=== PATIENT | male | born 1955 | race Caucasian/White ===

== ENCOUNTER 2016-11-12 04:21 | Emergency (ER) | payer OTHER ==
[~2016-11-12 04:21] MED LIST: ASPI81TA82 PO
[2016-11-12 04:24] VITALS: BP 183/106; PULSE 63; RESP 18; TEMP 97.6; O2SAT 97
[2016-11-12] MEDS ORDERED: ASPI-110 PO (04:46)
[2016-11-12] MEDS ORDERED: METO50TA PO (04:46)
[2016-11-12] MEDS ORDERED: VITA400T2 PO (04:46)
[2016-11-12] MEDS ORDERED: LISI10TA3 PO (04:46)
[2016-11-12] MEDS ORDERED: OMEP20TA PO (04:46)
[2016-11-12] MEDS ORDERED: SODIUM CHLOR 0.9% 1000 ML INJ 1,000 ML IV SCH (05:06)
[2016-11-12] MEDS ORDERED: SODIUM CHLORIDE 0.9% FLUSH 5 ML FLUSH IVF PRN (05:15)
[2016-11-12] MEDS ORDERED: LIDOCAINE VISCOUS 2% SOLN 15 ML UDC PO ONE (05:15)
[2016-11-12] MEDS ORDERED: ALUMINUM/MAGNESIUM/SIMETH 30 ML CUP PO ONE (05:15)
[2016-11-12] MEDS ORDERED: ONDANSETRON HCL 4 MG/2 ML VIAL IVP ONE (05:15)
[2016-11-12 05:31] LABS: AUTOMATED NEUTROPHIL # 3.4 TH/MM3 (1.8-7.7); BASOPHIL % 0.6 % (0.0-2.0); EOSINOPHIL # 0.1 TH/MM3 (0-0.4); EOSINOPHIL % 2.1 % (0.0-4.0); HEMATOCRIT 44.6 % (39.0-51.0); HEMO FLAGS DIFF FINAL; LYMPH % 36.8 % (9.0-44.0); LYMPHOCYTE # 2.4 TH/MM3 (1.0-4.8); MEAN CELL VOLUME 92.3 FL (80.0-100.0); MEAN CORPUSCULAR HEMOGLOBIN 32.1 PG (27.0-34.0); MEAN CORPUSCULAR HGB CONC 34.8 % (32.0-36.0); NEUT % 52.5 % (16.0-70.0); PLATELET COUNT 206 TH/MM3 (150-450); RED BLOOD COUNT 4.83 MIL/MM3 (4.50-5.90); RED CELL DISTRIBUTION WIDTH 13.2 % (11.6-17.2); WHITE BLOOD COUNT 6.5 TH/MM3 (4.0-11.0)
[2016-11-12] MEDS ORDERED: ZOFR4TAB3 SL (05:50)
--- NOTE | 2016-11-12 05:50 | PD ---
HPI Chief Complaint: Abdominal Pain Time Seen by Provider: 05:02 Travel History International Travel<30 days: No Contact w/Intl Traveler<30days: No Traveled to known affect area: No History of Present Illness HPI The patient is 60 years old. He developed epigastric abdominal pain which radiates to the back about 10 hours prior to ER arrival. The onset was gradual. He's had nausea and 2 episodes of vomiting since the onset of pain. He's had diarrhea as well. Last oral intake was a TV dinner and apple crisp. He had a similar event prior however that improved with oral hydration. He denies fever. PFSH Past Medical History Heart Rhythm Problems: Yes (SVT) Cardiovascular Problems: Yes (SVT) Past Surgical History Abdominal Surgery: Yes (HIATAL HERNIA REPAIR) Appendectomy: Yes Social History Alcohol Use: Yes Tobacco Use: No (quit 2 years ago) Substance Use: No Allergies-Medications (Allergen,Severity, Reaction): Coded Allergies: No Known Allergies (Unverified , 11/12/16) Reported Meds & Prescriptions Reported Meds & Active Scripts Active Zofran Odt (Ondansetron Odt) 4 Mg Tab 4 Mg SL Q8HR PRN Reported Vitamin D (Cholecalciferol) 400 Unit Tab 400 Mg PO BID Lisinopril 10 Mg Tab 10 Mg PO DAILY Metoprolol Tartrate 50 Mg Tab 50 Mg PO BID Omeprazole 20 Mg Tab 20 Mg PO DAILY Aspirin 81 (Aspirin) 81 Mg Tabdr 81 Mg PO DAILY Review of Systems Except as stated in HPI: all other systems reviewed are Neg General / Constitutional: No: Fever, Chills Gastrointestinal: Positive: Nausea, Vomiting, Diarrhea, Abdominal Pain Physical Exam Narrative GENERAL: 60-year-old male well-nourished well-developed no acute distress SKIN: Warm and dry. HEAD: Atraumatic. Normocephalic. EYES: Pupils equal and round. No scleral icterus. No injection or drainage. ENT: No nasal bleeding or discharge. Mucous membranes pink and moist. NECK: Trachea midline. No JVD. CARDIOVASCULAR: Regular rate and rhythm. No murmur appreciated. RESPIRATORY: No accessory muscle use. Clear to auscultation. Breath sounds equal bilaterally. GASTROINTESTINAL: Soft. Negative Temple's sign. No TTP at McBurney's point. MUSCULOSKELETAL: No obvious deformities. No clubbing. No cyanosis. No edema. NEUROLOGICAL: Awake and alert. No obvious cranial nerve deficits. Motor grossly within normal limits. Normal speech. PSYCHIATRIC: Appropriate mood and affect; insight and judgment normal. Data Data Last Documented VS Vital Signs Date Time Temp Pulse Resp B/P Pulse Ox O2 Delivery O2 Flow Rate FiO2 11/12/16 06:25 97 Room Air 11/12/16 04:24 97.6 63 18 183/106 VS reviewed Orders Complete Blood Count With Diff (11/12/16 05:06) Comprehensive Metabolic Panel (11/12/16 05:06) Lipase (11/12/16 05:06) Iv Access Insert/Monitor (11/12/16 05:06) Ecg Monitoring (11/12/16 05:06) Oximetry (11/12/16 05:06) Ondansetron Inj (Zofran Inj) (11/12/16 05:15) Sodium Chlor 0.9% 1000 Ml Inj (Ns 1000 M (11/12/16 05:06) Sodium Chloride 0.9% Flush (Ns Flush) (11/12/16 05:15) Ct Abd/Pel W Iv Contrast(Rout) (11/12/16 05:06) Al-Mag Hy-Si 40-40-4 Mg/Ml Liq (Mag-Al P (11/12/16 05:15) Lidocaine 2% Viscous (Xylocaine 2% Visco (11/12/16 05:15) Iohexol 350 Inj (Omnipaque 350 Inj) (11/12/16 06:14) Labs Laboratory Tests Test 11/12/16 04:10 White Blood Count 6.5 TH/MM3 Red Blood Count 4.83 MIL/MM3 Hemoglobin 15.5 GM/DL Hematocrit 44.6 % Mean Corpuscular Volume 92.3 FL Mean Corpuscular Hemoglobin 32.1 PG Mean Corpuscular Hemoglobin 34.8 % Concent Red Cell Distribution Width 13.2 % Platelet Count 206 TH/MM3 Mean Platelet Volume 7.6 FL Neutrophils (%) (Auto) 52.5 % Lymphocytes (%) (Auto) 36.8 % Monocytes (%) (Auto) 8.0 % Eosinophils (%) (Auto) 2.1 % Basophils (%) (Auto) 0.6 % Neutrophils # (Auto) 3.4 TH/MM3 Lymphocytes # (Auto) 2.4 TH/MM3 Monocytes # (Auto) 0.5 TH/MM3 Eosinophils # (Auto) 0.1 TH/MM3 Basophils # (Auto) 0.0 TH/MM3 CBC Comment DIFF FINAL Differential Comment Sodium Level 141 MEQ/L Potassium Level 4.1 MEQ/L Chloride Level 105 MEQ/L Carbon Dioxide Level 27.2 MEQ/L Anion Gap 9 MEQ/L Blood Urea Nitrogen 12 MG/DL Creatinine 1.32 MG/DL Estimat Glomerular Filtration 56 ML/MIN Rate Random Glucose 94 MG/DL Calcium Level 8.9 MG/DL Total Bilirubin 0.8 MG/DL Aspartate Amino Transf 14 U/L (AST/SGOT) Alanine Aminotransferase 21 U/L (ALT/SGPT) Alkaline Phosphatase 86 U/L Total Protein 6.9 GM/DL Albumin 3.7 GM/DL Lipase 249 U/L [facility] Medical Decision Making Medical Screen Exam Complete: Yes Emergency Medical Condition: Yes Medical Record Reviewed: Yes Differential Diagnosis Constipation, Gastritis, Acute Cholecystitis, Biliary Colic, Pancreatitis, DRISCOLL , Hepatitis, Bowel Obstruction, Cystitis, Mesenteric Ischemia, AAA, Appendicitis , Renal Stone/Hydronephrosis, GERD, perforated viscous Narrative Course CBC & BMP Diagram 11/12/16 04:10 LFTs normal Lipase 249 CT ab/pel: 6mm stone neck of GB without cholecystitis. 4cm hiatal hernia. small left inguinal hernia containing fat. Pain controlled without analgesia. Zofran prescribed. Follow up with general surgery for elective cholecystectomy as needed. Diagnosis Primary Impression: Cholelithiasis Qualified Code: K80.20 - Calculus of gallbladder without cholecystitis without obstruction Additional Impression: Nausea & vomiting Qualified Code: R11.2 - Nausea and vomiting, intractability of vomiting not specified, unspecified vomiting type Referrals: Vijay Barajas MD 1 week Additional Instructions: You have a choice when it comes to health care, and we are glad that you chose [facility]. Hopefully, we have met your expectations on today's visit. You are welcome to return to [facility] at any time, as we are committed to meeting the health care needs of our community. Med/Other Pt SpecificInfo: Prescription(s) given Scripts Ondansetron Odt (Zofran Odt)4 Mg Tab4 Mg SL Q8HR PRN (Nausea/Vomiting) #10 TAB Ref 0 Prov:Linwood Cortes MD 11/12/16 Disposition: 01 DISCHARGE HOME Condition: Stable Linwood Cortes MD Nov 12, 2016 05:50
[2016-11-12 05:53] LABS: ALT (GPT) 21 U/L (12-78); ANION GAP 9 MEQ/L (5-15); AST (GOT) 14 U/L (15-37); BICARBONATE 27.2 MEQ/L (21.0-32.0); BLOOD UREA NITROGEN 12 MG/DL (7-18); CHLORIDE 105 MEQ/L (98-107); GLOMERULAR FILTRATION RATE 56 ML/MIN (>89); POTASSIUM 4.1 MEQ/L (3.5-5.1); SODIUM (NA) 141 MEQ/L (136-145)
[2016-11-12 05:55] LABS: ALKALINE PHOSPHATASE 86 U/L (45-117); TOTAL BILIRUBIN ADULT 0.8 MG/DL (0.2-1.0)
[2016-11-12] MEDS ORDERED: IOHEXOL 350 MG/ML 10 ML VIAL (for RAD DIAG) IV ONE (06:14)
[2016-11-12 06:25] VITALS: O2SAT 97
--- NOTE | 2016-11-12 06:42 | RADRPT ---
EXAM DATE/TIME: 11/12/2016 06:13 [facility] COMPARISON: No previous studies available for comparison. INDICATIONS : Epigastric pain with nausea and vomiting. IV CONTRAST: 95 cc Omnipaque 350 (iohexol) IV ORAL CONTRAST: No oral contrast ingested. RADIATION DOSE: 9.69 CTDIvol (mGy) MEDICAL HISTORY : Hernia, hiatal. SURGICAL HISTORY : Appendectomy. Hiatal hernia repair. ENCOUNTER: Initial ACUITY: 1 day PAIN SCALE: 8/10 LOCATION: upper quadrant TECHNIQUE: Volumetric scanning of the abdomen and pelvis was performed. Using automated exposure control and ad justment of the mA and/or kV according to patient size, radiation dose was kept as low as reasonably achievable to obtain optimal diagnostic quality images. FINDINGS: LOWER LUNGS: The visualized lower lungs are clear. 4 cm hiatus hernia. LIVER: Homogeneous density without lesion. There is no dilation of the biliary tree. There is a 6 mm oval density near the neck of the gallbladder probably representing a stone. SPLEEN: Normal size without lesion. PANCREAS: Within normal limits. KIDNEYS: Normal in size and shape. There is no mass, stone or hydronephrosis. ADRENAL GLANDS: Within normal limits. VASCULAR: There is no aortic aneurysm. BOWEL/MESENTERY: No dilated loops of small or large bowel. There is colonic interposition anterior to the liver. No evidence of free fluid or free intraperitoneal gas. ABDOMINAL WALL: Within normal limits. RETROPERITONEUM: There is no lymphadenopathy. BLADDER: No wall thickening or mass. REPRODUCTIVE: Within normal limits. INGUINAL: There is a small fat containing left inguinal hernia. MUSCULOSKELETAL: Within normal limits for patient age. CONCLUSION: 1. 6 mm stone near the neck of the gallbladder. 2. 4 cm hiatus hernia. 3. Small left inguinal hernia containing fat. Surinder Fernández MD on November 12, 2016 at 6:37 Board Certified Radiologist. This report was verified electronically.
[2016-11-12] MEDS ORDERED: PERC7.5T13 PO (07:14)
[2017-02-08] MEDS ORDERED: VITATAB56 PO (10:35)
== END 2016-11-12 07:39 | disposition home or self-care (01) ==
LOC: NEPC 04:21
DX: K80.20 Calculus of gallbladder without cholecystitis without obstruction (principal)
CPT/HCPCS: 74177; 80053; 83690; 85025; 96361; 96374; 99284; J2405; J7030; Q9967

== ENCOUNTER → 2017-02-09 | Day surgery (SDC) | payer OTHER ==
[~2017-02-09] VITALS: Ht 177.8 cm; Wt 86.5 kg
[~2017-02-09] MED LIST changes: +ACETAMINOPHEN 1000 MG/100 ML VIAL IV SCH; +ASPI-110 PO; -ASPI81TA82 PO; +BUPIVACAINE/EPINEPHRINE 0.25% PF 10 ML VIAL ONE; +CHLORHEXIDINE GLUCONATE 2 % 1 PACK (2 CLOTHS) TOPICAL PRN; +DEXAMETHASONE SOD PHOS 4 MG/ML VIAL ONE; +DO NOT ADM ANY ANTICOAGULANT DRUGS PRN; +FAMOTIDINE 20 MG/2 ML VIAL ONE; +INSULIN HUMAN REGULAR 1,000 UNITS/10 ML VIAL SQ PRN; +LACTATED RINGER'S 1000 ML INJ 1,000 ML IV ONE; +LACTATED RINGER'S 1000 ML IV PRN; +LISI10TA3 PO; +METO50TA PO; +METOPROLOL TARTRATE 25 MG TAB PO PRN; +MIDAZOLAM HCL 2 MG/2 ML VIAL ONE; +MORPHINE SULFATE 4 MG/ML INJ IV PRN; +MORPHINE SULFATE 4 MG/ML INJ ONE; +NEOSTIGMINE 3 MG/3 ML SYR IV ONE; +OMEP20TA PO; +ONDANSETRON HCL 4 MG/2 ML VIAL IV PRN; +ONDANSETRON HCL 4 MG/2 ML VIAL IV PUSH ONE; +PERC7.5T13 PO; +PHENYLEPH/NS 1000 MCG/10 ML SYR IV ONE; +POVIDONE IODINE 5% (ANTISEPSIS KIT) 4 APPLICATIONS EACH NARE PRN; +PROPOFOL 200 MG/20 ML AMP IV ONE; +SODIUM CHLORID 0.9% 500 ML IV PRN; +VITATAB56 PO; +ceFAZolin 2 GM PREMIX 50 ML IV SCH; +fentaNYL CITRATE 250 MCG/5 ML AMP ONE; +metroNIDAZOLE 500 MG INJ 100 ML IV SCH; +oxyCODONE/ACETAMINOPHEN 5 MG/325 MG TAB PO PRN
[2017-02-09 06:26] VITALS: BP 136/91; PULSE 56; RESP 18; TEMP 98.1; O2SAT 96
[2017-02-09 07:15] LABS: ANION GAP 10 MEQ/L (5-15); AST (GOT) 20 U/L (15-37); BICARBONATE 24.5 MEQ/L (21.0-32.0); BLOOD UREA NITROGEN 16 MG/DL (7-18); CHLORIDE 106 MEQ/L (98-107); GLOMERULAR FILTRATION RATE 50 ML/MIN (>89); POTASSIUM 3.9 MEQ/L (3.5-5.1); SODIUM (NA) 140 MEQ/L (136-145)
[2017-02-09 07:17] LABS: ALT (GPT) 25 U/L (12-78)
[2017-02-09 07:18] LABS: ALKALINE PHOSPHATASE 100 U/L (45-117); TOTAL BILIRUBIN ADULT 0.6 MG/DL (0.2-1.0)
--- NOTE | 2017-02-09 09:45 | PD.OP ---
cc: Alvarado Munguia MD; Shiloh Vogt MD Operative Report Date of Surgery: Feb 09, 2017 Preoperative Diagnosis: (1) Cholelithiasis Postoperative Diagnosis: (1) Cholelithiasis Procedure: Laparoscopic cholecystectomy Primary umbilical hernia repair Anesthesia: [facility] Surgeon: Alvarado Munguia Early Childhood Lead Teacher(s): Luis VIZCAINO Operation and Findings: Complications: None apparent EBL:10cc Operative findings: The gallbladder was thick-walled and had chronic scarring. There was a 1 cm umbilical fascial defect with the fairly large amount of preperitoneal fat incarcerated. Procedure in detail: The patient was taken to the operating room and placed in the supine position. General endotracheal anesthesia was induced. The abdomen was prepped and draped in usual sterile fashion and a surgical timeout was performed to verify correct patient procedure and site. Appropriate perioperative antibiotics were administered. Local anesthetic was injected in the skin and subcutaneous tissue in the superior umbilicus and a superior umbilical curvilinear incision was made. Dissection was carried out through subcutaneous continues tissue with the Metzenbaum scissors and an umbilical hernia incarcerated with preperitoneal fat was encountered and the surrounding tissue freed. The hernia was dissected free from the umbilical skin as well. There is quite a bit of preperitoneal fat therefore I amputated it with the electrocautery. I then placed a 5 mm port through a 1 cm fascial defect with direct laparoscopic visualization. The abdomen was then insufflated to 15 mmHg with CO2 gas which the patient tolerated well. Next a 12 mm port was placed in the epigastrium and two 5 mm ports in the right upper quadrant and right lateral abdomen. The patient was placed in reverse Trendelenburg position and turned slightly to the left. Attention was turned to the right upper quadrant and the dome of the gallbladder was grasped and retracted cephalad. The infundibulum was retracted laterally to expose Calot's triangle. The gallbladder had evidence of chronic thickening and scarring. Blunt dissection and judicious use of electrocautery was used to expose the cystic duct and the cystic artery directly entering the gallbladder. The gallbladder was inadvertently entered and there was some spillage of bile. The suction research management associate was used to suction any bile spillage and also to help with dissection. Finally the cystic duct and cystic artery were clearly seen entering the gallbladder. Two clips were placed proximally on each of these structures and one distally and they were transected. The gallbladder was then removed from the liver bed using electrocautery. Hemostasis was achieved. There was a posterior arterial branch bleeding and I placed 1 clip on this branch. The gallbladder was then removed from the abdomen using an Endo Catch bag. The clips were in place on the cystic duct and cystic artery stumps with no bleeding or bile leakage. At this point, the abdomen was allowed to desufflate and trochars were removed. I then turned my attention to closure of the umbilical fascial defect. I cleared the surrounding fatty tissue to delineate the fascial edge. The defect was then closed with 3 simple interrupted 0 Prolene sutures. The umbilical skin was tacked down to underlying tissue with 2 3-0 Vicryl sutures. Next, The fascia at the 12 mm port site was closed with 0 Vicryl suture. Skin was closed with subcuticular 4-0 Monocryl as well as Dermabond. The patient tolerated the procedure well and was extubated and taken to PACU in stable condition. All sponge and instrument counts were correct. Alvarado Munguia MD Feb 09, 2017 09:45
[2017-02-09 11:15] VITALS: BP 136/87; PULSE 58; RESP 18; TEMP 97.8; O2SAT 95
== END | disposition home or self-care (01) ==
LOC: HSDC 05:47
PROVIDERS: ATTEND Surgery
DX: K80.20 Calculus of gallbladder without cholecystitis without obstruction (principal); K42.9 Umbilical hernia without obstruction or gangrene
CPT/HCPCS: 00790; 47562; 49653; 80053; 88304; J0131; J0690; J1100; J2250; J2270; J2370; J2405; J2710; J3010; J7120

== ENCOUNTER 2018-02-26 13:51 | Observation (INO) | payer OTHER ==
[~2018-02-26] VITALS: Ht 177.8 cm; Wt 88.5 kg
[~2018-02-26 13:51] MED LIST changes: -ACETAMINOPHEN 1000 MG/100 ML VIAL IV SCH; -ASPI-110 PO; +ASPI1TAB57 PO; -BUPIVACAINE/EPINEPHRINE 0.25% PF 10 ML VIAL ONE; -CHLORHEXIDINE GLUCONATE 2 % 1 PACK (2 CLOTHS) TOPICAL PRN; -DEXAMETHASONE SOD PHOS 4 MG/ML VIAL ONE; -DO NOT ADM ANY ANTICOAGULANT DRUGS PRN; -FAMOTIDINE 20 MG/2 ML VIAL ONE; -INSULIN HUMAN REGULAR 1,000 UNITS/10 ML VIAL SQ PRN; -LACTATED RINGER'S 1000 ML INJ 1,000 ML IV ONE; -LACTATED RINGER'S 1000 ML IV PRN; -METOPROLOL TARTRATE 25 MG TAB PO PRN; -MIDAZOLAM HCL 2 MG/2 ML VIAL ONE; -MORPHINE SULFATE 4 MG/ML INJ IV PRN; -MORPHINE SULFATE 4 MG/ML INJ ONE; -NEOSTIGMINE 3 MG/3 ML SYR IV ONE; -OMEP20TA PO; +OMEP20TA93 PO; -ONDANSETRON HCL 4 MG/2 ML VIAL IV PRN; -ONDANSETRON HCL 4 MG/2 ML VIAL IV PUSH ONE; -PHENYLEPH/NS 1000 MCG/10 ML SYR IV ONE; -POVIDONE IODINE 5% (ANTISEPSIS KIT) 4 APPLICATIONS EACH NARE PRN; -PROPOFOL 200 MG/20 ML AMP IV ONE; -SODIUM CHLORID 0.9% 500 ML IV PRN; -ceFAZolin 2 GM PREMIX 50 ML IV SCH; -fentaNYL CITRATE 250 MCG/5 ML AMP ONE; -metroNIDAZOLE 500 MG INJ 100 ML IV SCH; -oxyCODONE/ACETAMINOPHEN 5 MG/325 MG TAB PO PRN
[2018-02-26 13:55] VITALS: BP 151/93; PULSE 76; RESP 16; TEMP 98.2; O2SAT 97
[2018-02-26] MEDS ORDERED: SODIUM CHLORIDE 0.9% FLUSH 10 ML FLUSH IVF PRN (14:30)
[2018-02-26 14:40] VITALS: RESP 18; O2SAT 97
[2018-02-26] MEDS ORDERED: ASPIRIN 81 MG CHEW TAB PO ONE (14:45)
[2018-02-26 14:55] LABS: AUTOMATED NEUTROPHIL # 2.7 TH/MM3 (1.8-7.7); BASOPHIL % 0.5 % (0.0-2.0); EOSINOPHIL # 0.1 TH/MM3 (0-0.4); EOSINOPHIL % 2.9 % (0.0-4.0); HEMATOCRIT 45.1 % (39.0-51.0); HEMOGLOBIN 15.8 GM/DL (13.0-17.0); LYMPH % 32.4 % (9.0-44.0); LYMPHOCYTE # 1.6 TH/MM3 (1.0-4.8); MEAN CELL VOLUME 92.6 FL (80.0-100.0); MEAN CORPUSCULAR HEMOGLOBIN 32.4 PG (27.0-34.0); MEAN CORPUSCULAR HGB CONC 34.9 % (32.0-36.0); MEAN PLATELET VOLUME 7.2 FL (7.0-11.0); MONOCYTE # 0.4 TH/MM3 (0-0.9); NEUT % 56.2 % (16.0-70.0); PLATELET COUNT 234 TH/MM3 (150-450); RED BLOOD COUNT 4.87 MIL/MM3 (4.50-5.90); RED CELL DISTRIBUTION WIDTH 13.8 % (11.6-17.2); WHITE BLOOD COUNT 4.9 TH/MM3 (4.0-11.0)
--- NOTE | 2018-02-26 14:58 | PD ---
HPI Chief Complaint: Chest Pain Time Seen by Provider: 14:28 Travel History International Travel<30 days: No Contact w/Intl Traveler<30days: No Traveled to known affect area: No History of Present Illness HPI 62 y/o male presents with chest pain that has been present for the past week. Quality of pain is pressure. Severity is moderate. It is intermittent in nature. He denies any currently. He states he has had a stress test multiple years ago that was okay. He states he had a baby aspirin today. He states when the pain will come off this morning out of rest and got more frequent he elected to come here. He denies specific modifying factors. He denies any other concurrent complaints. PFSH Past Medical History Heart Rhythm Problems: Yes (SVT) Cancer: Yes (MELANOMA ON CHEST) Cardiovascular Problems: Yes (SVT) Diabetes: No Endocrine: No Gastrointestinal Disorders: Yes (GERD) Genitourinary: No Hepatitis: No Hiatal Hernia: Yes Hypertension: Yes Immune Disorder: No Musculoskeletal: No Neurologic: No Psychiatric: No Reproductive: No Respiratory: No Thyroid Disease: No Past Surgical History Abdominal Surgery: Yes (APPENDECTOMY, INGUINAL HERNIA REPAIR) AICD: No Appendectomy: Yes Cardiac Surgery: No Cholecystectomy: Yes Ear Surgery: No Endocrine Surgery: No Eye Surgery: No Genitourinary Surgery: No Joint Replacement: No Pacemaker: No Thoracic Surgery: No Other Surgery: Yes Social History Alcohol Use: Yes Tobacco Use: No (quit 2 years ago) Substance Use: No Allergies-Medications (Allergen,Severity, Reaction): Coded Allergies: No Known Allergies (Unverified Adverse Reaction, Unknown, 02/26/18) Reported Meds & Prescriptions Reported Meds & Active Scripts Active Reported Vitamin D-400 (Cholecalciferol) 400 Unit Tab 400 Units PO DAILY Lisinopril 10 Mg Tab 10 Mg PO DAILY Metoprolol Tartrate 50 Mg Tab 50 Mg PO BID Omeprazole 20 Mg Tab 20 Mg PO DAILY Aspirin 81 (Aspirin) 81 Mg Tabdr 81 Mg PO DAILY Review of Systems Except as stated in HPI: all other systems reviewed are Neg Physical Exam Narrative GENERAL: 62 y/o male in no apparent distress SKIN: Focused skin assessment warm/dry. HEAD: Atraumatic. Normocephalic. EYES: Pupils equal and round. No scleral icterus. No injection or drainage. ENT: No nasal bleeding or discharge. Mucous membranes pink and moist. NECK: Trachea midline. CARDIOVASCULAR: Regular rate and rhythm. RESPIRATORY: No accessory muscle use. Clear to auscultation. Breath sounds equal bilaterally. GASTROINTESTINAL: Abdomen soft, non-tender, nondistended MUSCULOSKELETAL: No obvious deformities. No clubbing. No cyanosis. NEUROLOGICAL: Awake and alert. No obvious cranial nerve deficits. Motor grossly within normal limits. Normal speech. PSYCHIATRIC: Appropriate mood and affect; insight and judgment normal. Data Data Last Documented VS Vital Signs Date Time Temp Pulse Resp B/P (MAP) Pulse Ox O2 Delivery O2 Flow Rate FiO2 02/26/18 15:27 78 19 128/88 (101) 96 Room Air 02/26/18 13:55 98.2 Orders Orders Electrocardiogram (02/26/18 13:58) Complete Blood Count With Diff (02/26/18 13:58) Basic Metabolic Panel (Bmp) (02/26/18 13:58) Ckmb (Isoenzyme) Profile (02/26/18 13:58) Troponin I (02/26/18 13:58) Iv Access Insert/Monitor (02/26/18 13:58) Ecg Monitoring (02/26/18 13:58) Oxygen Administration (02/26/18 13:58) Oximetry (02/26/18 13:58) Chest, Pa & Lat (02/26/18 13:58) Magnesium (Mg) (02/26/18 14:28) Prothrombin Time / Inr (Pt) (02/26/18 14:28) Act Partial Throm Time (Ptt) (02/26/18 14:28) Sodium Chloride 0.9% Flush (Ns Flush) (02/26/18 14:30) Hepatic Functional Panel (02/26/18 14:28) Aspirin Chew (Aspirin Chew) (02/26/18 14:45) CKMB (02/26/18 14:30) CKMB% (02/26/18 14:30) Admit Order (Ed Use Only) (02/26/18 15:54) Labs Laboratory Tests Test 02/26/18 14:30 White Blood Count 4.9 TH/MM3 Red Blood Count 4.87 MIL/MM3 Hemoglobin 15.8 GM/DL Hematocrit 45.1 % Mean Corpuscular Volume 92.6 FL Mean Corpuscular Hemoglobin 32.4 PG Mean Corpuscular Hemoglobin Concent 34.9 % Red Cell Distribution Width 13.8 % Platelet Count 234 TH/MM3 Mean Platelet Volume 7.2 FL Neutrophils (%) (Auto) 56.2 % Lymphocytes (%) (Auto) 32.4 % Monocytes (%) (Auto) 8.0 % Eosinophils (%) (Auto) 2.9 % Basophils (%) (Auto) 0.5 % Neutrophils # (Auto) 2.7 TH/MM3 Lymphocytes # (Auto) 1.6 TH/MM3 Monocytes # (Auto) 0.4 TH/MM3 Eosinophils # (Auto) 0.1 TH/MM3 Basophils # (Auto) 0.0 TH/MM3 CBC Comment DIFF FINAL Differential Comment Prothrombin Time 10.4 SEC Prothromb Time International Ratio 1.0 RATIO Activated Partial Thromboplast Time 27.2 SEC Blood Urea Nitrogen 19 MG/DL Creatinine 1.44 MG/DL Random Glucose 120 MG/DL Calcium Level 8.8 MG/DL Sodium Level 141 MEQ/L Potassium Level 3.8 MEQ/L Chloride Level 108 MEQ/L Carbon Dioxide Level 24.2 MEQ/L Anion Gap 9 MEQ/L Estimat Glomerular Filtration Rate 50 ML/MIN Magnesium Level 2.1 MG/DL Total Bilirubin 0.8 MG/DL Direct Bilirubin 0.1 MG/DL Indirect Bilirubin 0.7 MG/DL Aspartate Amino Transf (AST/SGOT) 24 U/L Alanine Aminotransferase (ALT/SGPT) 20 U/L Alkaline Phosphatase 114 U/L Total Creatine Kinase 105 U/L Creatine Kinase MB 0.8 NG/ML Troponin I LESS THAN 0.02 NG/ML Total Protein 7.1 GM/DL Albumin 3.7 GM/DL MDM Medical Decision Making Medical Screen Exam Complete: Yes Emergency Medical Condition: Yes Medical Record Reviewed: Yes (pmh confirmed) Interpretation(s) CBC & BMP Diagram 02/26/18 14:30 Calcium Level 8.8 Last 24 hours Impressions Chest X-Ray 02/26/18 1358 Signed Impressions: CONCLUSION: No acute cardiopulmonary abnormality is identified. Differential Diagnosis Gastritis, musculoskeletal, cardiac Narrative Course Will check blood work, chest x-ray, EKG and reevaluate ED workup without emergent process. Will place in chest pain center observation Diagnosis Primary Impression: Chest pain of uncertain etiology Admitting Information Admitting Physician Requests: Observation Virginia Resendiz MD Feb 26, 2018 14:58
[2018-02-26 15:08] LABS: PROTHROMBIN TIME - PATIENT 10.4 SEC (9.8-11.6)
[2018-02-26 15:17] LABS: ALBUMIN 3.7 GM/DL (3.4-5.0); DIRECT BILIRUBIN ADULT 0.1 MG/DL (0.0-0.2); INDIRECT BILIRUBIN 0.7 MG/DL (0.0-0.8); MAGNESIUM 2.1 MG/DL (1.5-2.5); TOTAL BILIRUBIN ADULT 0.8 MG/DL (0.2-1.0); TOTAL PROTEIN 7.1 GM/DL (6.4-8.2)
[2018-02-26 15:18] LABS: BICARBONATE 24.2 MEQ/L (21.0-32.0); BLOOD UREA NITROGEN 19 MG/DL (7-18); CALCIUM 8.8 MG/DL (8.5-10.1); CHLORIDE 108 MEQ/L (98-107); CREATININE 1.44 MG/DL (0.60-1.30); GLOMERULAR FILTRATION RATE 50 ML/MIN (>89); GLUCOSE,RANDOM 120 MG/DL (74-106); SODIUM (NA) 141 MEQ/L (136-145); TROPONIN I LESS THAN 0.02 NG/ML (0.02-0.05)
--- NOTE | 2018-02-26 15:23 | RADRPT ---
EXAM DATE: 02/26/2018 3:19 PM EDT AGE/SEX: 62 years / Male INDICATIONS: Chest pain. CLINICAL DATA: This is the patient's initial encounter. Patient reports that signs and symptoms have been present for 1 week and indicates a pain score of 4/10. MEDICAL/SURGICAL HISTORY: . tachycardia None. COMPARISON: [facility] [place], 10/20/2015. . FINDINGS: PA and lateral views of the chest demonstrate a normal-sized cardiac silhouette. There is no effusion , consolidation, or pneumothorax. The bones and soft tissues demonstrate no acute abnormality. CONCLUSION: No acute cardiopulmonary abnormality is identified. Electronically signed by: Sacha Angel MD 02/26/2018 3:21 PM EDT
[2018-02-26 15:27] VITALS: BP 128/88; PULSE 78; RESP 19; O2SAT 96
[2018-02-26] MEDS ORDERED: ONDANSETRON ODT 4 MG TAB PO PRN (16:45)
[2018-02-26] MEDS ORDERED: NITROGLYCERIN 0.4 MG SL 25 TABS/BTL SL PRN (16:45)
[2018-02-26] MEDS ORDERED: ACETAMINOPHEN 500 MG CPLT PO PRN (16:45)
[2018-02-26] MEDS ORDERED: SODIUM CHLORIDE 0.9% FLUSH 10 ML FLUSH IV FLUSH PRN (16:45)
--- NOTE | 2018-02-26 16:57 | HHI.HP ---
HPI Primary Care Physician Shiloh Vogt MD Chief Complaint Chest pain History of Present Illness 62-year-old male history of hypertension hyperlipidemia, and GERD presents emergency room for further evaluation of chest pain. Onset initially began 1 week ago. Occur 1-2 times daily. Initially began in the right anterior chest. Characterized as a dull ache. Today he woke up with discomfort. Location left anterior chest. Characterized as more intense, occurring more frequently and characteristic change to sharp. Severity moderate. No radiation. No associated symptoms nausea, vomiting, dyspnea, diaphoresis. Duration 15-20 minutes. No known precipitating or relieving factors. Walks beach daily. In fact, Sunday while walking beach developed chest pain after walking one block however he continued to walk and discomfort resolved quickly. Currently experiencing a dull, ache with intermittent sharp pain over left anterior chest. Denies similar pain in the past. No recent illness or injury. Review of Systems General: No fatigue,weakness, fever, chills, recent illness, or change in appetite HEENT: No FRANCIS, no vision changes, no nasal congestion or drainage, no dysphasia CV: As stated above. History of SVT, no recent episodes. RESP: No SOB, cough, wheeze GI: No nausea, vomiting, bowel changes, diarrhea, constipation, pain, distention , melena, or blood in the stool. No unintentional weight gain or weight loss. : No dysuria, urgency, frequency EXT: No lower leg edema, no paraesthesias MS: No discomfort, injury, or change in ROM NEURO: No change in memory, dizziness, difficulty with balance, LOC, motor/ sensory deficits PSYCH: No anxiety, depression, or suicidal ideation SKIN: No rashes, no concerning lesions Past Family Social History Allergies: Coded Allergies: No Known Allergies (Unverified Allergy, Unknown, 02/26/18) Past Medical History GERD, chronic kidney disease, hyperlipidemia, hiatal hernia, former smoker, hiatal hernia, basal cell cancer, SVT, vitamin D deficiency Past Surgical History Appendectomy, inguinal hernia repair Reported Medications Reported Meds & Active Scripts Active Reported Vitamin D-400 (Cholecalciferol) 400 Unit Tab 400 Units PO DAILY Lisinopril 10 Mg Tab 10 Mg PO DAILY Metoprolol Tartrate 50 Mg Tab 50 Mg PO BID Omeprazole 20 Mg Tab 20 Mg PO DAILY Aspirin 81 (Aspirin) 81 Mg Tabdr 81 Mg PO DAILY Zinc Active Ordered Medications Current Medications Medications (Trade) Dose Ordered Sig/Norris Route Start Time Stop Time Status Last Admin (NS Flush) 2 ml UNSCH PRN IVF 02/26/18 14:30 (NS Flush) 2 ml UNSCH PRN IV FLUSH 02/26/18 16:45 UNV (NS Flush) 2 ml BID IV FLUSH 02/26/18 21:00 UNV (Tylenol) 500 mg Q4H PRN PO 02/26/18 16:45 UNV (Nitrostat Sl) 0.4 mg Q5M PRN SL 02/26/18 16:45 UNV (Aspirin) 325 mg DAILY PO 02/27/18 09:00 UNV (Zofran Odt) 4 mg Q6H PRN PO 02/26/18 16:45 UNV Family History Positive for early onset cardiovascular disease. Brother [place] early 40s, however patient states brother was 500 pounds, diabetic with multiple comorbidities. Social History No known coronary artery disease or diabetes. Known hyperlipidemia and hypertension. Former smoker. Quit 3 years ago. [id number] total history. Endorses daily alcohol use 32 ounce beer. Single. Active, walking beach daily. Past cardiac testing No recent testing Physical Exam Vital Signs Vital Signs Date Time Temp Pulse Resp B/P (MAP) Pulse Ox O2 Delivery O2 Flow Rate FiO2 02/26/18 15:27 78 19 128/88 (101) 96 Room Air 02/26/18 14:40 97 Room Air 02/26/18 14:40 18 97 Room Air 02/26/18 13:55 98.2 76 16 151/93 (112) 97 Physical Exam GENERAL: Alert WN, WD, NAD, pleasant, male HEAD: NC, AT EYES: Sclera clear, conjunctiva without injection, pupils equal and round ENT: Mucous membranes pink and moist, no nasal discharge or bleeding NECK: Supple, no masses, trachea midline CV: RRR, without murmur, rub, or gallop. no S3-S4. Chest wall nontender with palpation RESP: Clear lungs throughout bilateral, no crackles, wheeze, rhonchi, symmetrical chest rise, nonlabored, able to speak in full sentences ABD: Soft, NT, ND, no masses, positive bowel tones EXT: Pulses +2x4, no dependent edema MS: Normal tone x4 extremities, no obvious deformities, full range of motion NEURO: CN II through CN XII grossly intact, motor strength 5/5 PSYCH: A+O x3, pleasant affect, appropriate speech, appropriate, insight and judgment SKIN: Normal turgor, normal texture, no lesions, no rashes, brisk cap refill, even hair distribution Laboratory Laboratory Tests Test 02/26/18 14:30 White Blood Count 4.9 Red Blood Count 4.87 Hemoglobin 15.8 Hematocrit 45.1 Mean Corpuscular Volume 92.6 Mean Corpuscular Hemoglobin 32.4 Mean Corpuscular Hemoglobin Concent 34.9 Red Cell Distribution Width 13.8 Platelet Count 234 Mean Platelet Volume 7.2 Neutrophils (%) (Auto) 56.2 Lymphocytes (%) (Auto) 32.4 Monocytes (%) (Auto) 8.0 Eosinophils (%) (Auto) 2.9 Basophils (%) (Auto) 0.5 Neutrophils # (Auto) 2.7 Lymphocytes # (Auto) 1.6 Monocytes # (Auto) 0.4 Eosinophils # (Auto) 0.1 Basophils # (Auto) 0.0 CBC Comment DIFF FINAL Differential Comment Prothrombin Time 10.4 Prothromb Time International Ratio 1.0 Activated Partial Thromboplast Time 27.2 Blood Urea Nitrogen 19 Creatinine 1.44 Random Glucose 120 Calcium Level 8.8 Sodium Level 141 Potassium Level 3.8 Chloride Level 108 Carbon Dioxide Level 24.2 Anion Gap 9 Estimat Glomerular Filtration Rate 50 Magnesium Level 2.1 Total Bilirubin 0.8 Direct Bilirubin 0.1 Indirect Bilirubin 0.7 Aspartate Amino Transf (AST/SGOT) 24 Alanine Aminotransferase (ALT/SGPT) 20 Alkaline Phosphatase 114 Total Creatine Kinase 105 Creatine Kinase MB 0.8 Troponin I LESS THAN 0.02 Total Protein 7.1 Albumin 3.7 Result Diagram: 02/26/18 1430 02/26/18 1430 Imaging Last 24 hours Impressions Chest X-Ray 02/26/18 1358 Signed Impressions: CONCLUSION: No acute cardiopulmonary abnormality is identified. Course EKG NSR, normal axis, no st t segment changes Caprini VTE Risk Assessment Caprini VTE Risk Assessment: Mod/High Risk (score >= 2) Caprini Risk Assessment Model Point Value = 1 Point Value = 2 Point Value = 3 Point Value = 5 Age 41-60 Minor surgery BMI > 25 kg/m2 Swollen legs Varicose veins or History of unexplained or recurrent spontaneous Oral contraceptives or hormone replacement Sepsis (< 1 month) Serious lung disease, including pneumonia (< 1 month) Abnormal pulmonary function Acute myocardial infarction Congestive heart failure (< 1 month) History of inflammatory bowel disease Medical patient at bed rest Age 61-74 Arthroscopic surgery Major open surgery (> 45 min) Laparoscopic surgery (> 45 min) Malignancy Confined to bed (> 72 hours) Immobilizing plaster cast Central venous access Age >= 75 History of VTE Family history of VTE Factor V Leiden Prothrombin [id number] Lupus anticoagulant Anticardiolipin antibodies Elevated serum homocysteine Heparin-induced thrombocytopenia Other congenital or acquired thrombophilia Stroke (< 1 month) Elective arthroplasty Hip, pelvis, or leg fracture Acute spinal cord injury (< 1 month) Prophylaxis Regimen Total Risk Factor Score Risk Level Prophylaxis Regimen 0-1 Low Early ambulation 2 Moderate Order ONE of the following: *Sequential Compression Device (SCD) *Heparin 5000 units SQ BID 3-4 Higher Order ONE of the following medications: *Heparin 5000 units SQ TID *Enoxaparin/Lovenox 40 mg SQ daily (WT < 150 kg, CrCl > 30 mL/min) *Enoxaparin/Lovenox 30 mg SQ daily (WT < 150 kg, CrCl > 10-29 mL/min) *Enoxaparin/Lovenox 30 mg SQ BID (WT < 150 kg, CrCl > 30 mL/min) AND/OR *Sequential Compression Device (SCD) 5 or more Highest Order ONE of the following medications: *Heparin 5000 units SQ TID (Preferred with Epidurals) *Enoxaparin/Lovenox 40 mg SQ daily (WT < 150 kg, CrCl > 30 mL/min) *Enoxaparin/Lovenox 30 mg SQ daily (WT < 150 kg, CrCl > 10-29 mL/min) *Enoxaparin/Lovenox 30 mg SQ BID (WT < 150 kg, CrCl > 30 mL/min) AND *Sequential Compression Device (SCD) Assessment and Plan Problem List: (1) Chest pain of uncertain etiology ICD Codes: R07.89 - Other chest pain Plan: Admitted chest pain center. Rule out with 3 sets of EKGs and cardiac enzymes. Seen and evaluated by Dr. Eran Diaz. Monitor on telemetry overnight. Proceed with cardiac exam ruled out. (2) Hypertension ICD Codes: I10 - Essential (primary) hypertension Status: Chronic Plan: Continue lisinopril and metoprolol. (3) GERD (gastroesophageal reflux disease) ICD Codes: K21.9 - Gastro-esophageal reflux disease without esophagitis Status: Chronic Plan: Continue omeprazole (4) Alcohol abuse ICD Codes: F10.10 - Alcohol abuse, uncomplicated Status: Acute Plan: Discussed alcohol misuse to include no more than 2 alcohol drinks/daily. Problem Qualifiers (1) Hypertension: Qualified Codes: I10 - Essential (primary) hypertension Ynes Ferrara [facility] Feb 26, 2018 16:57
[2018-02-26 17:59] VITALS: O2SAT 98
[2018-02-26 19:02] LABS: TROPONIN I LESS THAN 0.02 NG/ML (0.02-0.05)
[2018-02-26 19:53] VITALS: BP 138/92; PULSE 64; RESP 17; TEMP 98.7; O2SAT 95
[2018-02-26] MEDS: SODIUM CHLORIDE 0.9% FLUSH 10 ML FLUSH IV FLUSH SCH (21:00)
[2018-02-26 22:08] LABS: TROPONIN I LESS THAN 0.02 NG/ML (0.02-0.05)
[2018-02-26 23:36] VITALS: BP 116/77; PULSE 62; RESP 17; TEMP 98.5; O2SAT 95
[2018-02-27 03:47] VITALS: BP 123/82; PULSE 70; RESP 17; TEMP 98.3; O2SAT 93
[2018-02-27 07:19] VITALS: BP 130/91; PULSE 65; RESP 10; TEMP 97.8
[2018-02-27] MEDS ORDERED: ASPIRIN 325 MG TAB PO SCH (09:00)
[2018-02-27] MEDS: SODIUM CHLORIDE 0.9% FLUSH 10 ML FLUSH IV FLUSH SCH (09:22)
--- NOTE | 2018-02-27 09:30 | HHI.DCPOC ---
Discharge Care Plan Diagnosis: (1) Chest pain of uncertain etiology Goals to Promote Your Health * To prevent worsening of your condition and complications * To maintain your health at the optimal level Directions to Meet Your Goals Take your medications as prescribed Follow your dietary instruction Follow activity as directed Keep your appointments as scheduled Take your immunizations and boosters as scheduled If your symptoms worsen call your PCP, if no PCP go to Urgent Care Center or Emergency Room Smoking is Dangerous to Your Health. Avoid second hand smoke Call the 24-hour hour crisis hotline for domestic abuse at Ynes Ferrara Feb 27, 2018 09:30
--- NOTE | 2018-02-27 09:33 | HHI.DS ---
Discharge Summary Admission Date Feb 26, 2018 at 15:55 Discharge Date: Feb 27, 2018 Admitting Diagnosis chest pain (1) Chest pain of uncertain etiology Diagnosis: Principal ICD Codes: R07.89 - Other chest pain Status: Resolved Brief History 62-year-old male with history of hypertension and GERD presents emergency room for further evaluation of chest pain. Onset 1 week. Admitted to chest pain center. Ruled out with 3 sets of EKGs, cardiac enzymes, monitored on telemetry overnight. Seen and evaluated by Dr. Eran Diaz. Proceeded with treadmill cardiac testing is felt to be nonischemic. Discharged home with follow-up with primary care provider. CBC/BMP: 02/26/18 1430 02/26/18 1430 Significant Findings Laboratory Tests Test 02/26/18 14:30 02/26/18 18:17 02/26/18 21:15 Blood Urea Nitrogen 19 MG/DL (7-18) Creatinine 1.44 MG/DL (0.60-1.30) Random Glucose 120 MG/DL (74-106) Chloride Level 108 MEQ/L (98-107) Estimat Glomerular Filtration Rate 50 ML/MIN (>89) Troponin I LESS THAN 0.02 NG/ML LESS THAN 0.02 NG/ML LESS THAN 0.02 NG/ML Imaging Last 24 hours Impressions Chest X-Ray 02/26/18 1358 Signed Impressions: CONCLUSION: No acute cardiopulmonary abnormality is identified. PE at Discharge GENERAL: Alert WN, WD, NAD, pleasant, male HEAD: NC, AT EYES: Sclera clear CV: RRR, without murmur, rub, gallop RESP: Clear lungs throughout bilateral, no crackles, wheeze, rhonchi, symmetrical chest rise, nonlabored, able to speak in full sentences MS: Normal tone x4 extremities, full range of motion NEURO: CN II through CN XII grossly intact, motor strength 5/5, gait WNL PSYCH: A+O x3, pleasant affect, appropriate speech, mood, insight and judgment SKIN: Normal turgor, normal texture, no lesions, no rashes, brisk cap refill, even hair distribution Pt Condition on Discharge: Good Discharge Disposition: Discharge Home Discharge Instructions DIET: Follow Instructions for: Heart Healthy Diet Activities you can perform: Regular-No Restrictions Ynes Ferrara Feb 27, 2018 09:33
[2018-02-27 10:36] VITALS: PULSE 81
--- NOTE | 2018-02-27 11:39 | EKG ---
Date Performed: 02/26/2018 Time Performed: 21:25:16 PTAGE: 62 years EKG: Sinus rhythm ABNORMAL ECG PREVIOUS TRACING : 02/26/2018 18.15 Since previous tracing, no significant change noted DOCTOR: Eran Diaz Interpretating Date/Time 02/28/2018 06:42:03
--- NOTE | 2018-02-27 11:40 | EKG ---
Date Performed: 02/26/2018 Time Performed: 18:15:56 PTAGE: 62 years EKG: Sinus rhythm NORMAL ECG PREVIOUS TRACING : 10/20/2015 20.23 Since previous tracing, no significant change noted DOCTOR: Eran Diaz Interpretating Date/Time 02/27/2018 11:39:20
--- NOTE | 2018-02-27 11:41 | EKG ---
Date Performed: 02/26/2018 Time Performed: 14:03:20 PTAGE: 62 years EKG: Sinus rhythm ABNORMAL ECG INTERPRETATION BASED ON A DEFAULT AGE OF 41 YEARS NO PREVIOUS TRACING DOCTOR: Eran Diaz Interpretating Date/Time 02/27/2018 11:40:14
--- NOTE | 2018-02-27 11:44 | TR ---
Date Performed: 02/27/2018 Time Performed: 08:18:39 DOCTOR: Eran Diaz DRUG LIST: CLINICAL HISTORY: REASON FOR TEST: CHEST PAIN REASON FOR ENDING: OBSERVATION: CONCLUSION: Dorian protocol completed. Stopped sec to exceeding target heart rate and leg fatigue . Maximum RE=573 Target HR Kqifrrzf=519.0% Maximum FC=743/86 Total Exercise Time=6:01. No reprod ches t pain. Rare PAC. Normal bp response. Good exercise tolerance. T wave inversion and slight st horizio nal changes inferior at peak. Recovery quick and unremarkable. COMMENTS: Patient exercised using the Dorian protocol. No electrocardiographic changes were seen to suggest ischemia. Hemodynamic response to exercise was normal. No significant arrhythmia was prese nt.
== END 2018-02-27 11:14 | disposition home or self-care (01) ==
LOC: NEPE 13:51 → NEDA 15:55 → NEPHCDU 18:22
PROVIDERS: ADMIT Internal Medicine Cardiovascular Disease; ATTEND Internal Medicine Cardiovascular Disease
DX: R07.9 Chest pain, unspecified (principal); I47.1 Supraventricular tachycardia; Z85.820 Personal history of malignant melanoma of skin; K21.9 Gastro-esophageal reflux disease without esophagitis; K44.9 Diaphragmatic hernia without obstruction or gangrene; I10 Essential (primary) hypertension; Z87.891 Personal history of nicotine dependence; Z79.899 Other long term (current) drug therapy; E78.5 Hyperlipidemia, unspecified; F10.10 Alcohol abuse, uncomplicated; R94.31 Abnormal electrocardiogram [ECG] [EKG]
CPT/HCPCS: 71046; 80048; 80076; 82550; 82552; 83735; 84484; 85025; 85610; 85730; 93005; 93017; 99285; G0378